=== PATIENT | male | born 1965 | race Caucasian/White ===

== ENCOUNTER 2016-07-06 22:20 | Emergency (ER) | payer OTHER | END 2016-07-06 23:27 | disposition home or self-care (01) | LOC: ER 22:20 | DX: R23.4 Changes in skin texture (principal); K25.9 Gastric ulcer, unspecified as acute or chronic, without hemorrhage or perforation; F17.210 Nicotine dependence, cigarettes, uncomplicated; Z87.442 Personal history of urinary calculi; Z88.5 Allergy status to narcotic agent; Z79.899 Other long term (current) drug therapy ==